=== PATIENT | male | born 1995 | race Caucasian/White ===

== ENCOUNTER 2023-05-23 22:27 | Emergency (ER) | payer SELFPAY ==
[2023-05-23 22:28] VITALS: BP 158/80; PULSE 125; RESP 17; TEMP 36.6; O2SAT 98; BMI 29.2
--- NOTE | 2023-05-23 22:37 | ED_ITS ---
HPI - Abdominal Pain 2 General: Chief Complaint: Abdominal Pain Stated Complaint: abd pain Time Seen by Provider: 05/23/23 22:28 Source: patient Mode of arrival: ambulatory Limitations: no limitations History of Present Illness: Patient is a 27-year-old male who presents to ED today with a complaint of pain. Patient states symptoms started approximately 3 to 4 days ago. He initially had some episodes of vomiting but has not had any further episodes of emesis over the past 48 hours although admittedly has not ate or drink much. He states he has not had much in the way of bowel movements but again states he has not ate much. He has not been running fevers. No urinary complaints. Patient states he was seen at [facility] 2 days ago and diagnosed with constipation. Patient did arrive tachycardic but afebrile. 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 MD elicited complaint: abdominal pain Pertinent past history: none Onset (ago): day(s) Pain Consistency: constant Location: Diffuse Severity: moderate Pain scale (0-10): 6 Radiation: none Migration to: no migration Relieving factors: nothing Associated Symptoms: Reports nausea and vomiting; Denies change in bowel habits, chills, diarrhea, dysuria, fever(s), hematochezia, hematemesis and melena Review of Systems 2 Const: Denies: fever(s), chills, body aches, fatigue or malaise Card: Denies: chest pain Resp: Denies: dyspnea GI: Reports: abdominal pain, nausea and vomiting; Denies: hematemesis, diarrhea, change in bowel habits, hematochezia or melena : Denies: flank pain, difficulty urinating, dysuria, urinary frequency, urinary urgency or urinary hesitancy Musc: Denies: neck pain, back pain, extremity pain or joint pain Skin/Breast: Denies: rash Neuro: Denies: headache(s), numbness in extremities, weakness in extremities or sensory changes Physical Exam 2 Const: COMMON NORMALS: no acute distress, average body habitus, patient oriented x3, no limitations, healthy appearing, alert and well nourished Eye: COMMON NORMALS: no scleral icterus Resp: COMMON NORMALS: normal respiratory effort and clear to auscultation bilaterally AUSCULTATION: clear to auscultation bilaterally Cardio: COMMON NORMALS: regular rhythm RATE: tachycardic RHYTHM: regular rhythm GI: COMMON NORMALS: Normal to inspection, nondistended, normoactive bowel sounds present, Soft to palpation, No hepatosplenomegaly present and no masses INSPECTION: Yes normal to inspection and Yes scar AUSCULTATION: Yes normoactive bowel sounds PALPATION: Yes Soft to palpation, Yes Tenderness to palpation present (GI) (throughout abdomen), Yes Guarding due to palpation present (GI) and Yes No hepatosplenomegaly present : COMMON NORMALS: Yes no CVA tenderness BLADDER/KIDNEY EXAM: Yes no CVA tenderness Back/Pelvis: COMMON NORMALS: no CVA tenderness Extremity: GENERAL: Yes normal exam except as noted Neuro: COMMON NORMALS: patient oriented x3 SENSORIUM/ORIENTATION: Yes alert Skin: COMMON NORMALS: no rashes or lesions noted GENERAL SKIN EXAM: no rashes or lesions noted Course 2 Vital Signs: Vital signs: Vital Signs Temperature 97.9 F 05/23/23 22:28 Pulse Rate 115 H 05/23/23 23:59 Respiratory Rate 16 05/23/23 23:59 Blood Pressure 150/86 05/23/23 23:59 Pulse Oximetry 97 05/23/23 23:59 Oxygen Delivery Me thod Room Air 05/23/23 23:59 MDM - Abdominal Pain Medical Decision Making Patient here generalized abdominal pain over the last few days. He initially had a few episodes of vomiting but has not had any since. He has not had any bloody diarrhea. No fevers. Blood work does show a white count of 18.4. He has a normal lactate. Question of etiology of this could be more stress-induced versus actual bacterial infection. UA consistent with dehydration. He was given IV fluids here. CT scan showing no surgical etiology. They did report some abnormal thickening and edema along the terminal ileum stating that findings are nonspecific but could represent an inflammatory bowel disease or nonspecific enteritis. Patient will be treated with steroids for this. Will hold off on antibiotics at this time. Recommend he follow-up with primary care later this week for reevaluation. Return ED precautions given. Lab Data 05/23/23 22:38 05/23/23 22:38 Labs/Radiology: Radiology Impressions Abdomen/Pelvis CT 05/23/23 22:49 IMPRESSION: Abnormal thickening and inflammation of the distal ileum which could represent inflammatory bowel disease. Laboratory Results WBC 18.46 10^3/uL (3.29-11.43) H 05/23/23 22:38 RBC 6.18 10^6/uL (3.85-5.65) H 05/23/23 22:38 Hgb 18.00 g/dL (11.27-16.99) H 05/23/23 22:38 Hct 52.8 % (37-53) 05/23/23 22:38 MCV 85.4 fl (82-101) 05/23/23 22:38 MCH 29.1 pg (27-33) 05/23/23 22:38 MCHC 34.1 g/dL (30-55) 05/23/23 22:38 RDW 12.3 % (12.1-15.1) 05/23/23 22:38 Plt Count 347 10^3/cmm (157-399) 05/23/23 22:38 MPV 9.8 fL (7.4-10.4) 05/23/23 22:38 Neut % (Auto) 67.8 % 05/23/23 22:38 Lymph % (Auto) 17.2 % 05/23/23 22:38 [place] % (Auto) 5.5 % 05/23/23 22:38 Eos % (Auto) 8.8 % 05/23/23 22:38 Baso % (Auto) 0.4 % 05/23/23 22:38 Neut # (Auto) 12.51 10^3/uL (1.8-7.7) H 05/23/23 22:38 Lymph # (Auto) 3.2 10^3/uL (0.8-4.8) 05/23/23 22:38 [place] # (Auto) 1.0 10^3/uL (0.2-0.9) H 05/23/23 22:38 Eos # (Auto) 1.6 10^3/uL (0.0-0.8) H 05/23/23 22:38 Baso # (Auto) 0.1 10^3/uL (0.0-0.1) 05/23/23 22:38 Nucleated RBC % (auto) 0 % 05/23/23 22:38 Nucleated RBCs # 0.0 /100WBC 05/23/23 22:38 Sodium 137 mmol/L (136-145) 05/23/23 22:38 Potassium 3.9 mmol/L (3.5-5.1) 05/23/23 22:38 Chloride 99 mmol/L (98-107) 05/23/23 22:38 Carbon Dioxide 22 mmol/L (22-29) 05/23/23 22:38 Anion Gap 19.9 (5-19) H 05/23/23 22:38 BUN 11 mg/dL (6-20) 05/23/23 22:38 Creatinine 1.0 mg/dL (0.7-1.2) 05/23/23 22:38 GFR Calculation 91.0 mL/min (90-130) 05/23/23 22:38 Glucose 105 mg/dL (65-115) 05/23/23 22:38 Calculated Osmolality 284 mOsm/kg (285-295) L 05/23/23 22:38 Lactic Acid 1.6 mmol/L (0.5-2.2) 05/23/23 22:38 Calcium 10.3 mg/dL (8.5-10.5) 05/23/23 22:38 Total Bilirubin 0.6 mg/dL (0.15-1.2) 05/23/23 22:38 AST 12 U/L (0-40) 05/23/23 22:38 ALT 18 U/L (0-41) 05/23/23 22:38 Alkaline Phosphatase 65 U/L (40-130) 05/23/23 22:38 Total Protein 8.0 g/dL (6.6-8.7) 05/23/23 22:38 Albumin 4.5 g/dL (3.5-5.2) 05/23/23 22:38 Globulin 3.5 g/dL (1.3-4.6) 05/23/23 22:38 Lipase 27 U/L (13-60) 05/23/23 22:38 Urine Color Yellow (Yellow) 05/24/23 00:44 Urine Appearance Clear (CLEAR) 05/24/23 00:44 Urine pH 5 (5-7) 05/24/23 00:44 Ur Specific [place] 1.015 (1.005-1.030) 05/24/23 00:44 Urine Protein 1+ (Negative) H 05/24/23 00:44 Urine Glucose (UA) Norm (Normal) 05/24/23 00:44 Urine Ketones 3+ (Negative) H 05/24/23 00:44 Urine Blood Neg (Negative) 05/24/23 00:44 Urine Nitrate Negative (Negative) 05/24/23 00:44 Urine Bilirubin 1+ (Negative) H 05/24/23 00:44 Urine Urobilinogen Neg mg/dL (Negative) 05/24/23 00:44 Ur Leukocyte Esterase Trace (Negative) H 05/24/23 00:44 Urine RBC None /hpf (0-2) 05/24/23 00:44 Urine WBC 0-4 /hpf (0-5) H 05/24/23 00:44 Ur Squamous Epith Cells None /hpf (0-5) 05/24/23 00:44 Amorphous Sediment Not Reportable 05/24/23 00:44 Urine Bacteria Trace /hpf (NONE) 05/24/23 00:44 Urine Mucus 1+ /hpf 05/24/23 00:44 All radiology interpretation(s) finalized by discharge Discharge Plan Discharge Patient Disposition: Home Clinical Impression: Abdominal pain Qualifiers: Abdominal location: generalized Qualified Code(s): R10.84 - Generalized abdominal pain Condition: Stable Prescriptions: New prednisone 10 mg tablet 10 mg PO DAILY 10 Days Qty: 27 0RF Rx Instructions: 6 tabs on days 1-2, 5 tabs on days 3, 4 tabs on day 4, 3 tabs on day 5, 2 tabs on day 6, 1 tab on day 7 ondansetron 4 mg tablet,disintegrating 4 mg PO Q8H PRN (Reason: nausea and vomiting) Qty: 14 0RF Discharge Orders: Discharge ED (Routine); Ordered 05/24/23 Ordered By: Jaquelin Peraza Referrals: Nano Ruiz MD [Primary Care Provider] - Patient Instructions: Abdominal Pain (ED) Activity Restrictions/Additional Instructions: As discussed I would like you to follow-up with your primary care provider later this week for reevaluation. As we discussed your urine was consistent with dehydration so make sure you are pushing plenty of fluids at home. CT scan findings possibly represent an inflammatory bowel disease or nonspecific enteritis. Will place him on steroids and antinausea medications for this. We will hold off on any form of antibiotics at this time. He need to return the emergency department for severe or worsening abdominal pain, repetitive episodes of vomiting, bloody diarrhea, fevers, generally feeling worse or unwell, or any other concerns you may have. I hope you begin to feel better soon. Coding Level of Care Code ED Director Of Staff Development for [facility] Menjivar
[2023-05-23 22:44] LABS: Basophils # 0.1 10^3/uL (0.0-0.1); Basophils % 0.4 %; Eosinophils # 1.6 10^3/uL (0.0-0.8); Eosinophils % 8.8 %; Hematocrit 52.8 % (37-53); Lymphocytes # 3.2 10^3/uL (0.8-4.8); Lymphocytes % 17.2 %; Mean Corpuscular HGB Conc 34.1 g/dL (30-55); Mean Corpuscular Hemoglobin 29.1 pg (27-33); Mean Corpuscular Volume 85.4 fl (82-101); Mean Platelet Volume 9.8 fL (7.4-10.4); Monocytes % 5.5 %; Neutrophils # 12.51 10^3/uL (1.8-7.7); Neutrophils % 67.8 %; Nucleated Red Blood Cells % 0 %; Platelet Count 347 10^3/cmm (157-399); Red Blood Count 6.18 10^6/uL (3.85-5.65); Red Cell Distribution Width 12.3 % (12.1-15.1); White Blood Count 18.46 10^3/uL (3.29-11.43)
--- NOTE | 2023-05-23 22:49 | CTR_ITS ---
PROCEDURE INFORMATION: Exam: CT Abdomen And Pelvis With Contrast Exam date and time: 05/23/2023 11:29 PM Age: 27 years old Clinical indication: Abdominal pain; Generalized; Prior surgery; Surgery date: 6+ months; Surgery type: Pyloric stenosis 7 years old, appendix; Additional info: Abdominal pain, vomiting, tachy/white count TECHNIQUE: Imaging protocol: Computed tomography of the abdomen and pelvis with contrast. Radiation optimization: All CT scans at this facility use at least one of these dose optimization techniques: automated exposure control; mA and/or kV adjustment per patient size (includes targeted exams where dose is matched to clinical indication); or iterative reconstruction. Contrast material: OMNI 350; Contrast volume: 100 ml; Contrast route: INTRAVENOUS (IV); COMPARISON: 1. CT chest w con* [id number] 12/13/2018 11:[address] Abdomen/Pelvis w IV* [id number] 05/18/2015 11:51 PM RADIATION DOSE METRICS: Total DLP (mGy-cm): 800 FINDINGS: Diaphragm: There is a small hiatal hernia. Liver: There is no focal abnormality within the liver. Gallbladder and bile ducts: The gallbladder is normal. There is no common bile duct dilation. Pancreas: The pancreas is normal. Spleen: The spleen is normal. Adrenal glands: The adrenal glands are normal. Kidneys and ureters: The kidneys are normal. There is no evidence of hydronephrosis. There is no evidence of renal or ureteral calcifications. Stomach and bowel: There is abnormal thickening with wall enhancement and submucosal edema of a long segment of the terminal ileum with some mild inflammatory stranding in the adjacent fat. Findings are nonspecific could represent inflammatory bowel disease or nonspecific enteritis. Please correlate clinically. There is no evidence of colitis/diverticulitis. There is no evidence of intestinal obstruction. Appendix: There has been an appendectomy. Intraperitoneal space: There is a small amount of free intraperitoneal fluid present. There is no free intraperitoneal air. Vasculature: The aorta is normal. Lymph nodes: There is no evidence of lymphadenopathy. There is some mildly prominent mesenteric lymph nodes in the right lower quadrant of uncertain significance. Urinary bladder: Unremarkable as visualized. Reproductive: Unremarkable as visualized. Bones/joints: Unremarkable. No acute fracture. Soft tissues: Unremarkable. CT/CT abdomen pelvis w con* [id number] IMPRESSION: Abnormal thickening and inflammation of the distal ileum which could represent inflammatory bowel disease.
[2023-05-23 23:03] LABS: Alanine Aminotransferase 18 U/L (0-41); Albumin Level 4.5 g/dL (3.5-5.2); Alkaline Phosphatase 65 U/L (40-130); Anion Gap 19.9 (5-19); Aspartate Amino Transferase 12 U/L (0-40); Blood Urea Nitrogen 11 mg/dL (6-20); Calcium 10.3 mg/dL (8.5-10.5); Carbon Dioxide 22 mmol/L (22-29); Chloride 99 mmol/L (98-107); Globulin 3.5 g/dL (1.3-4.6); Glucose 105 mg/dL (65-115); Lipase 27 U/L (13-60); Osmolality Calculated 284 mOsm/kg (285-295); Potassium 3.9 mmol/L (3.5-5.1); Sodium 137 mmol/L (136-145); Total Bilirubin 0.6 mg/dL (0.15-1.2)
[2023-05-23 23:10] LABS: Lactic Sepsis W/Reflex 1.6 mmol/L (0.5-2.2)
[2023-05-23] MEDS: iohexol 350 mg/mL 500 mL Btl (per mL) IV (23:33)
[2023-05-23 23:59] VITALS: BP 150/86; PULSE 115; RESP 16; O2SAT 97
[2023-05-23] MEDS: sodium chloride 0.9% 1,000 ML 999 ML IV (23:59)
[2023-05-24 00:56] LABS: Add Urine Microscopic? YES; Bilirubin Urine 1+ (Negative); Blood Urine Neg (Negative); Glucose Urine UA Norm (Normal); Ketones Urine 3+ (Negative); Leukocyte Esterase Urine Trace (Negative); Nitrate Urine Negative (Negative); Protein Urine 1+ (Negative); Specific Gravity, Urine 1.015 (1.005-1.030); Urine Appearance Clear (CLEAR); Urine Color Yellow (Yellow); Urobilinogen Urine Neg (Negative); pH Urine 5 (5-7)
[2023-05-24 00:58] LABS: Add Urine Culture? No; Bacteria Urine TRACE /hpf; Mucus Urine 1+ /hpf; WBC Urine 0-4 /hpf (0-5)
[2023-05-24] MEDS: dexamethasone 4 mg/mL INJ 8 MG IVP (01:12)
[2023-05-24 01:41] VITALS: BP 119/83; PULSE 91; RESP 16; O2SAT 98
== END 2023-05-24 01:42 | disposition home or self-care (01) ==
PROVIDERS: Emergency Provider Physician Assistant; Family Provider Pediatrics Adolescent Medicine; PCP Pediatrics Adolescent Medicine
DX: R10.84 Generalized abdominal pain (principal)
CPT/HCPCS: 74177; 80053; 81001; 83605; 83690; 85025; 96374; 99285; J1100; J7040; Q9967